=== PATIENT | female | born 1990 ===

== ENCOUNTER 2019-11-04 00:15 | Inpatient (IN) | payer OTHER, BC ==
[~2019-11-04] VITALS: Ht 172.7 cm; Wt 144.0 kg
[~2019-11-04 00:15] MED LIST: CODACE30 PO; CRUTCH USE; CRUTCH3 USE; CRUTCH4 USE; HYDACE5 PO; NAPR500 PO; RXCODACET PO; RXHYDACE PO; TRAM50 PO; [UNRECOGNIZED DRUG - REMARK]
[2019-11-04] MEDS ORDERED: PRENATAL TABLE1 EAC2 PO (01:07)
[2019-11-04 01:16] LABS: BASOPHILS ABSOLUTE AUTO 0.03 K/mm3 (0.00-0.23); BASOPHILS PERCENT AUTO 0 % (0-2); EOSINOPHILS ABSOLUTE AUTO 0.03 K/mm3 (0.00-0.68); EOSINOPHILS PERCENT AUTO 0 % (0-6); Hematocrit 39.4 % (33.0-51.0); Hemoglobin 12.9 g/dL (11.5-16.0); IMMATURE GRAN ABSOLUTE AUTO 0.07 K/mm3 (0.00-0.10); IMMATURE GRAN PERCENT AUTO 0 % (0-1); LYMPHOCYTES ABSOLUTE AUTO 2.32 K/mm3 (0.84-5.20); LYMPHOCYTES PERCENT AUTO 14 % (21-46); MONOCYTES ABSOLUTE AUTO 0.82 K/mm3 (0.16-1.47); MONOCYTES PERCENT AUTO 5 % (4-13); Mean Corpuscular HGB 26.5 pg (26.0-34.0); Mean Corpuscular HGB Conc 32.7 g/dL (31.5-36.5); Mean Corpuscular Volume 81 fL (80-100); Mean Platelet Volume 10.5 fL (9.1-12.4); NEUTROPHILS ABSOLUTE AUTO 12.95 K/mm3 (1.96-9.15); NEUTROPHILS PERCENT AUTO 80 % (41-73); Platelet Count 345 K/mm3 (150-400); RDW Coefficient Variation 14.7 % (11.7-14.2); RDW Standard Deviation 42.7 fL (35.1-46.3); Red Blood Cell Count 4.86 M/mm3 (3.80-5.20); White Blood Cell Count 16.22 K/mm3 (4.00-11.30)
--- NOTE | 2019-11-04 08:42 | NUR ---
RN ROUNDED TO HELP W/ . INSTRUCT/DEMO CORRECT POSITIONING, U-HOLD, HAND EXPRESSION AND NIPPLE SHAPE AFTER FEEDS. NB SLEEPY DOES NOT MAKE ANY ATTEMPT TO FEED. GO [facility] REPORTS NB FED WELL FOR 1 HOUR AT 0630. FURTHER LACATION SUPPORT OFFERED IF PT DESIRES. PT AND SO LOVING W/ NB AND EACH OTHER, BOTH DENY ANY FURTHER QUESTIONS OR CONCERNS.
[2019-11-04] MEDS ORDERED: IBUP800 PO (09:31)
--- NOTE | 2019-11-04 13:05 | NUR ---
ASSUMED CARE OF PTIENT, OOB WITH ONE ASSIST TO BATHROOM, TOLERATED WELL
[2019-11-05 05:39] LABS: BASOPHILS ABSOLUTE AUTO 0.05 K/mm3 (0.00-0.23); BASOPHILS PERCENT AUTO 0 % (0-2); EOSINOPHILS ABSOLUTE AUTO 0.13 K/mm3 (0.00-0.68); EOSINOPHILS PERCENT AUTO 1 % (0-6); Hematocrit 35.4 % (33.0-51.0); Hemoglobin 11.2 g/dL (11.5-16.0); IMMATURE GRAN ABSOLUTE AUTO 0.08 K/mm3 (0.00-0.10); IMMATURE GRAN PERCENT AUTO 1 % (0-1); LYMPHOCYTES ABSOLUTE AUTO 3.95 K/mm3 (0.84-5.20); LYMPHOCYTES PERCENT AUTO 26 % (21-46); MONOCYTES ABSOLUTE AUTO 0.81 K/mm3 (0.16-1.47); MONOCYTES PERCENT AUTO 5 % (4-13); Mean Corpuscular HGB 26.4 pg (26.0-34.0); Mean Corpuscular HGB Conc 31.6 g/dL (31.5-36.5); Mean Corpuscular Volume 84 fL (80-100); Mean Platelet Volume 9.9 fL (9.1-12.4); NEUTROPHILS ABSOLUTE AUTO 10.07 K/mm3 (1.96-9.15); NEUTROPHILS PERCENT AUTO 67 % (41-73); Platelet Count 292 K/mm3 (150-400); RDW Coefficient Variation 15.6 % (11.7-14.2); RDW Standard Deviation 46.7 fL (35.1-46.3); Red Blood Cell Count 4.24 M/mm3 (3.80-5.20); White Blood Cell Count 15.09 K/mm3 (4.00-11.30)
--- NOTE | 2019-11-05 13:29 | NUR ---
RN ROUNDED TO HELP W/ . ATTEMPTED TO LATCH NB W/O SHIELD, NB WOULD NOT ATTEMPT TO LATCH. LATCHED WELL W/ SHIELD NB WOULD NOT MAKE MUCH ATTEMPT TO SUCK. FILLED THE SHILED W/ 1CC FORMULA, NB STARTED SUCKING MORE AGRESIVELY AND FOR LONGER. WILL CONTINUE TO HELP GET PT OFF SHIELD AND PPFU APPIONTMENTS AND WHEN MILK SUPPLY COMES IN. INSTRUCTED PT TO CONTINUE TO ATTEMPT TRYING TO LATCH W/O SHIELD BUT STOP IF NB BECOMES TOO FRUSTRATED. PT VERBALIZED UNDERSTANDING, DENIES ANY FURTHER QUESTIONS OR CONCERNS.
--- NOTE | 2019-11-05 14:56 | NUR ---
DISCHARGE PARENTS VERBALIZE UNDERSTANDING OF DISCHARGE TEACHING AND FOLLOW UP APPOINTMENTS. NO QUESTIONS OR CONCERNS. CARING FOR SELF AND BABY INDEPENDANTLY. NO QUESTIONS OR CONCERNS.
== END 2019-11-05 16:10 | disposition home or self-care (01) | DRG 807 ==
LOC: OBS 00:15 → BC 00:15 → OBS 00:54 → BC 00:57
PROVIDERS: ADMIT Nurse Practitioner Obstetrics & Gynecology
PROC: 10E0XZZ Delivery of Products of Conception, External Approach (ICD-10-PCS; principal; 2019-11-04)
PROC: 10907ZC Drainage of Amniotic Fluid, Therapeutic from Products of Conception, Via Natural or Artificial Opening (ICD-10-PCS; 2019-11-04)
PROC: 0HQ9XZZ Repair Perineum Skin, External Approach (ICD-10-PCS; 2019-11-04)
DX: O99.824 Streptococcus B carrier state complicating childbirth (principal); Z37.0 Single live birth; Z3A.39 39 weeks gestation of pregnancy; O70.0 First degree perineal laceration during delivery; O77.0 Labor and delivery complicated by meconium in amniotic fluid
CPT/HCPCS: 36415; 85025; 86850; 86900; 86901; J0290; J1885; J2210; J2590; J3010; J7120

== ENCOUNTER 2020-08-09 19:10 | Emergency (ER) | payer BC, OTHER ==
[~2020-08-09] VITALS: Ht 170.2 cm; Wt 136.1 kg
[~2020-08-09 19:10] MED LIST changes: +IBUP800 PO; +PRENATAL TABLE1 EAC2 PO
[2020-08-09 20:00] LABS: BASOPHILS ABSOLUTE AUTO 0.05 K/mm3 (0.00-0.23); BASOPHILS PERCENT AUTO 1 % (0-2); EOSINOPHILS ABSOLUTE AUTO 0.17 K/mm3 (0.00-0.68); EOSINOPHILS PERCENT AUTO 2 % (0-6); Hematocrit 44.9 % (33.0-51.0); Hemoglobin 14.3 g/dL (11.5-16.0); IMMATURE GRAN ABSOLUTE AUTO 0.04 K/mm3 (0.00-0.10); IMMATURE GRAN PERCENT AUTO 0 % (0-1); LYMPHOCYTES ABSOLUTE AUTO 2.84 K/mm3 (0.84-5.20); LYMPHOCYTES PERCENT AUTO 27 % (21-46); MONOCYTES ABSOLUTE AUTO 0.56 K/mm3 (0.16-1.47); MONOCYTES PERCENT AUTO 5 % (4-13); Mean Corpuscular HGB 25.8 pg (26.0-34.0); Mean Corpuscular HGB Conc 31.8 g/dL (31.5-36.5); Mean Corpuscular Volume 81 fL (80-100); Mean Platelet Volume 9.1 fL (9.1-12.4); NEUTROPHILS ABSOLUTE AUTO 6.77 K/mm3 (1.96-9.15); NEUTROPHILS PERCENT AUTO 65 % (41-73); Platelet Count 394 K/mm3 (150-400); RDW Coefficient Variation 14.5 % (11.7-14.2); RDW Standard Deviation 42.5 fL (35.1-46.3); Red Blood Cell Count 5.54 M/mm3 (3.80-5.20); White Blood Cell Count 10.43 K/mm3 (4.00-11.30)
[2020-08-09 20:18] LABS: Alanine Aminotransfer (ALT/SGP 33 U/L (12-78); Albumin, Blood 3.5 g/dL (3.4-5.0); Albumin/Globulin Ratio 0.8 (0.8-1.8); Alk Phos 125 U/L (50-136); Anion Gap 6 mmol/L (6-16); Aspartate Aminotrans (AST/SGOT 22 U/L (12-37); Bilirubin, Total 0.3 mg/dL (0.1-1.0); Blood Urea Nitrogen 10 mg/dL (8-24); Bun/Creatinine Ratio 13.7 (12.0-20.0); CO2, Blood 24 mmol/L (21-32); Calcium, Blood 8.6 mg/dL (8.5-10.1); Chloride, Blood 111 mmol/L (98-108); Creatinine, Blood 0.73 mg/dL (0.40-1.00); Globulin, Blood 4.4 g/dL (2.2-4.0); Glomerular Filtration Rate >60 (60-); Glucose, Blood 89 mg/dL (70-99); Potassium, Blood 3.7 mmol/L (3.5-5.5); Sodium, Blood 141 mmol/L (136-145); Total Protein, Blood 7.9 g/dL (6.4-8.2)
[2020-08-09 22:40] LABS: Troponin I <0.015 ng/mL (0.000-0.040)
== END 2020-08-09 23:24 | disposition home or self-care (01) ==
LOC: ER 19:10
PROVIDERS: Physician Assistant
DX: R09.89 Other specified symptoms and signs involving the circulatory and respiratory systems (principal); R07.9 Chest pain, unspecified
CPT/HCPCS: 36415; 71045; 80053; 83690; 84484; 84703; 85025; 93005; 93010; 99284-25; A9270

== ENCOUNTER → 2022-01-12 | Outpatient (CLI) | payer BC, OTHER | END | disposition home or self-care (01) | LOC: LAB SHORT 21:30 | DX: R63.6 Underweight (principal); E55.9 Vitamin D deficiency, unspecified; B37.82 Candidal enteritis; Z71.3 Dietary counseling and surveillance | CPT/HCPCS: 87338 ==